=== PATIENT | female | born 1975 | race Caucasian/White ===

== ENCOUNTER 2021-01-21 07:23 | Emergency (ER) | payer OTHER, BC ==
[2021-01-21] MEDS ORDERED: Acetaminophen/HYDROcodone 325-5 MG Tab PO ONE (07:34)
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
[2021-01-21] MEDS ORDERED: Lidocaine 1% with EPINEPHrine 1:100,000 10 ML MDV ONE (08:16)
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
[2021-01-21] MEDS ORDERED: Lidocaine 1% with EPINEPHrine 1:100,000 10 ML MDV INJECT ONE (08:27)
[2021-01-21] MEDS ORDERED: Diphtheria,Pertussis(Acell),Tetanus Vaccine 0.5 ML Syringe IM ONE (09:08)
== END 2021-01-21 09:45 | disposition home or self-care (01) ==
LOC: KA.ED 07:23
DX: S02.81XA Fracture of other specified skull and facial bones, right side, initial encounter for closed fracture (principal); S01.111A Laceration without foreign body of right eyelid and periocular area, initial encounter; Z88.2 Allergy status to sulfonamides; Z23 Encounter for immunization; V03.99XA Pedestrian with other conveyance injured in collision with car, pick-up truck or van, unspecified whether traffic or nontraffic accident, initial encounter; Y92.410 Unspecified street and highway as the place of occurrence of the external cause
CPT/HCPCS: 12011; 70450; 70486; 72125; 90471; 90715; 99284; A9270; 99283